=== PATIENT | male | born 1995 | race Caucasian/White ===

== ENCOUNTER 2019-08-08 12:52 | Emergency (ER) | payer BC ==
[~2019-08-08] VITALS: Ht 172.7 cm; Wt 65.8 kg
[2019-08-08 13:06] VITALS: Ht 172.7 cm; Wt 65.8 kg
[2019-08-08 14:22] VITALS: BP 127/70
== END 2019-08-08 14:22 | disposition home or self-care (01) ==
LOC: ED 12:52
DX: S63.501A Unspecified sprain of right wrist, initial encounter (principal); W18.30XA Fall on same level, unspecified, initial encounter; Y93.89 Activity, other specified; Y92.89 Other specified places as the place of occurrence of the external cause; Y99.8 Other external cause status